=== PATIENT | male | born 1945 | race Caucasian/White ===

== ENCOUNTER → 2019-08-24 10:28 | Outpatient (BNVA) | payer OTHER, SELFPAY | PROVIDERS: Family Provider Internal Medicine; PCP Internal Medicine; Visit Provider Urology | DX: R97.20 Elevated prostate specific antigen [PSA] (principal); C61 Malignant neoplasm of prostate | CPT/HCPCS: 81001; 84153 ==

== ENCOUNTER → 2019-11-24 07:52 | Outpatient (BNVA) | payer OTHER, SELFPAY | PROVIDERS: Family Provider Internal Medicine; PCP Internal Medicine; Visit Provider Urology | DX: R97.20 Elevated prostate specific antigen [PSA] (principal) | CPT/HCPCS: 81001; 84153 ==

== ENCOUNTER → 2020-05-24 08:14 | Outpatient (BNVA) | payer OTHER, SELFPAY | PROVIDERS: Family Provider Internal Medicine; PCP Family Medicine; Visit Provider Urology | DX: C61 Malignant neoplasm of prostate (principal); R97.20 Elevated prostate specific antigen [PSA] | CPT/HCPCS: 81003; 84153 ==

== ENCOUNTER → 2020-11-28 08:21 | Outpatient (BNVA) | payer OTHER, SELFPAY | PROVIDERS: Family Provider Internal Medicine; PCP Emergency Medicine Emergency Medical Services; Visit Provider Urology | DX: C61 Malignant neoplasm of prostate (principal); R97.20 Elevated prostate specific antigen [PSA] | CPT/HCPCS: 81003; 84153 ==

== ENCOUNTER 2021-03-02 12:42 | Outpatient (CLI) | payer OTHER, SELFPAY ==
[2021-03-02 13:00] VITALS: BP 122/64; PULSE 56; RESP 18; TEMP 36.8; O2SAT 97
[2021-03-02 13:10] VITALS: BMI 24.3
[2021-03-02 14:05] VITALS: BP 118/64; PULSE 53; RESP 16; TEMP 36.6; O2SAT 94
[2021-03-02 15:05] VITALS: BP 124/67; PULSE 54; RESP 16; TEMP 36.9; O2SAT 92
== END 2021-03-02 12:43 | disposition home or self-care (01) ==
LOC: OPS 12:45
PROVIDERS: PCP Emergency Medicine Emergency Medical Services; Visit Provider Nurse Practitioner
DX: U07.1 COVID-19 (principal)
CPT/HCPCS: 96365

== ENCOUNTER → 2021-05-29 08:26 | Outpatient (BNVA) | payer MEDICARE, OTHER, SELFPAY | PROVIDERS: PCP Emergency Medicine Emergency Medical Services; Visit Provider Urology | DX: C61 Malignant neoplasm of prostate (principal) | CPT/HCPCS: 81003; 84153 ==

== ENCOUNTER 2021-11-29 09:13 | Outpatient (CLI) | payer MEDICARE, OTHER, SELFPAY | END 2021-11-29 09:14 | disposition home or self-care (01) | PROVIDERS: PCP Family Medicine; Visit Provider Urology | DX: R97.20 Elevated prostate specific antigen [PSA] (principal) | CPT/HCPCS: 36415; 84153 ==

== ENCOUNTER → 2021-12-04 08:03 | Outpatient (BNVA) | payer MEDICARE, OTHER, SELFPAY | PROVIDERS: PCP Family Medicine; Visit Provider Urology | DX: C61 Malignant neoplasm of prostate (principal) | CPT/HCPCS: 99213 ==

== ENCOUNTER → 2021-12-12 14:43 | Outpatient (BNVA) | payer MEDICARE, OTHER, SELFPAY | PROVIDERS: PCP Family Medicine; Visit Provider Otolaryngology | DX: R22.1 Localized swelling, mass and lump, neck (principal); K11.8 Other diseases of salivary glands; F17.200 Nicotine dependence, unspecified, uncomplicated | CPT/HCPCS: 99203; 99204 ==

== ENCOUNTER → 2021-12-17 10:35 | Outpatient (BNVA) | payer MEDICARE, OTHER, SELFPAY | PROVIDERS: PCP Family Medicine; Visit Provider Urology | DX: C61 Malignant neoplasm of prostate (principal) | CPT/HCPCS: 81003 ==

== ENCOUNTER 2021-12-19 15:41 | Outpatient (CLI) | payer MEDICARE, OTHER, SELFPAY ==
--- NOTE | 2021-12-19 16:00 | CT_ITS ---
WS: [id number] CT NECK WITH CONTRAST HISTORY: Parotid gland mass, RIGHT, 2-3 months. TECHNIQUE: Contiguous 5 mm axial images are performed through the neck with intravenous contrast. Sag ittal and coronal reformats are also submitted. All CT scans at [facility] use at least one o f these dose optimization techniques: automated exposure control; mA and/or kV adjustment per patient size (includes targeted exams where dose is matched to clinical indication); or iterative reconstruc tion. CONTRAST: CONTRAST: Omnipaque 350; 95 mL IV. DLP: 225.84 mGy.cm COMPARISON: None available. Minimally enhancing mass is noted in the superficial tail of the RIGHT parotid gland. Mass measures 1 .6 x 1.7 cm and extends over length of 2.1 cm. Margins are very slightly nodular. No cystic component . This is an additional more superficial nodule measuring 0.6 cm which may be a benign lymph node. LE FT parotid gland is negative. RIGHT cervical chain lymphadenopathy. Level IIa round lymph node maximum transverse diameter 1.7 cm. Level IIb lymph node on the RIGHT measures 1.3 cm. Several round enlarged lymph nodes at level IIb. E nlarged Vb lymph node measures 1.5 cm. No significantly enlarged LEFT cervical chain lymph nodes. No soft tissue extension into the parapharyngeal fat. Nasopharynx and oropharynx and larynx are negative. No tumors or abnormal enhancement at the tongue b ase or through the larynx. Negative thyroid gland. Normal submandibular glands. Visualized portions of the skull base demonstrate no abnormalities. Orbits and globes are within norm al limits. No soft tissue masses. Visualized paranasal sinuses and mastoid air cells are normal. Lung apices are clear. Moderate cervical spondylitic changes. CT/CT neck w con* [id number] IMPRESSION: 1. Solid mildly enhancing mass superficial tail RIGHT parotid gland measures 1 .6 x 1.7 x 2.1 cm. There is an additional smaller more superficial enhancing no dule measuring 0.6 cm. This could be a small lymph node. The largest solid enha ncing mass suspicious for neoplasm as there is adjacent cervical lymphadenopath y. Biopsy and surgical removal recommended RIGHT parotid lesions. 2. RIGHT cervical lymphadenopathy. Abnormal lymph nodes at level IIa, IIb and Vb. 3. No additional areas of abnormal enhancement throughout the neck.
[2021-12-19 16:26] LABS: Blood Urea Nitrogen 16 mg/dL (8-23)
[2021-12-19] MEDS: iohexol 350 mg/mL 100 mL Btl IV (16:37)
== END 2021-12-19 15:42 | disposition home or self-care (01) ==
PROVIDERS: PCP Family Medicine; Visit Provider Otolaryngology
DX: R22.1 Localized swelling, mass and lump, neck (principal)
CPT/HCPCS: 70491; 82565; 84520

== ENCOUNTER → 2021-12-26 10:27 | Outpatient (BNVA) | payer MEDICARE, OTHER, SELFPAY | PROVIDERS: PCP Family Medicine; Visit Provider Otolaryngology | DX: K11.8 Other diseases of salivary glands (principal); R59.0 Localized enlarged lymph nodes; F17.200 Nicotine dependence, unspecified, uncomplicated | CPT/HCPCS: 99213 ==

== ENCOUNTER 2022-01-02 11:50 | Outpatient (CLI) | payer MEDICARE, OTHER, SELFPAY ==
--- NOTE | 2022-01-02 | US_ITS ---
WS: [id number] ULTRASOUND-GUIDED FNA. INDICATION: RIGHT parotid lesions TECHNIQUE: The procedure, including risks benefits, and complications were discussed with the patient who agreed to proceed. Timeout was performed. After 1% lidocaine, using ultrasound guidance, the RIG HT parotid mass in the tail of the parotid was sampled with 25-gauge needles with active aspiration. Pathology was present for slide preparation. 4 passes performed. Next, the superficial nodule or lymph node seen on the prior CT was also sampled using FNA with ultra sound guidance. 4 passes performed. Patient remained in the ultrasound Suite 15 minutes postprocedure . No immediate complications.. Cytology is pending. US/US guide FNA 2nd lesion [id number] IMPRESSION: Uncomplicated ultrasound-guided FNA of the 2 parotid lesions.
--- NOTE | 2022-01-02 | US_ITS ---
WS: [facility] ULTRASOUND-GUIDED FNA. INDICATION: RIGHT parotid lesions TECHNIQUE: The procedure, including risks benefits, and complications were discussed with the patient who agreed to proceed. Timeout was performed. After 1% lidocaine, using ultrasound guidance, the RIG HT parotid mass in the tail of the parotid was sampled with 25-gauge needles with active aspiration. Pathology was present for slide preparation. 4 passes performed. Next, the superficial nodule or lymph node seen on the prior CT was also sampled using FNA with ultra sound guidance. 4 passes performed. Patient remained in the ultrasound Suite 15 minutes postprocedure . No immediate complications.. Cytology is pending. US/US guide FNA [id number] IMPRESSION: Uncomplicated ultrasound-guided FNA of the 2 parotid lesions.
== END 2022-01-02 11:51 | disposition home or self-care (01) ==
LOC: RAD 11:51
PROVIDERS: PCP Family Medicine; Visit Provider Otolaryngology
DX: K11.8 Other diseases of salivary glands (principal)
CPT/HCPCS: 10005; 10006; 88108

== ENCOUNTER → 2022-01-09 08:15 | Outpatient (BNVA) | payer MEDICARE, OTHER, SELFPAY | PROVIDERS: PCP Family Medicine; Visit Provider Otolaryngology | DX: C07 Malignant neoplasm of parotid gland (principal); R59.0 Localized enlarged lymph nodes; F17.200 Nicotine dependence, unspecified, uncomplicated | CPT/HCPCS: 99213 ==

== ENCOUNTER → 2022-01-16 09:26 | Outpatient (BNVA) | payer MEDICARE, OTHER, SELFPAY | PROVIDERS: PCP Family Medicine; Visit Provider Otolaryngology | DX: C07 Malignant neoplasm of parotid gland (principal); R59.0 Localized enlarged lymph nodes; F17.200 Nicotine dependence, unspecified, uncomplicated | CPT/HCPCS: 99204 ==

== ENCOUNTER → 2022-02-27 08:30 | Outpatient (BNVA) | payer MEDICARE, OTHER, SELFPAY | PROVIDERS: PCP Family Medicine; Visit Provider Otolaryngology | DX: C07 Malignant neoplasm of parotid gland (principal); R59.0 Localized enlarged lymph nodes | CPT/HCPCS: 99213 ==

== ENCOUNTER → 2022-03-06 12:01 | Outpatient (BNVA) | payer MEDICARE, OTHER, SELFPAY | PROVIDERS: PCP Family Medicine; Visit Provider Otolaryngology | DX: C07 Malignant neoplasm of parotid gland (principal); R59.0 Localized enlarged lymph nodes | CPT/HCPCS: 99213 ==

== ENCOUNTER 2022-03-20 13:37 | Oncology outpatient (recurring) (ONCR) | payer MEDICARE, OTHER, SELFPAY ==
--- NOTE | 2022-03-20 16:05 | N.ONRAD NP_ITS ---
Radiation Oncology New Patient Visit Patient: Alfred Flores MR#: [id number] : 1945> Age: 76> Sex: Male> Dictated by: Dr. Matthew Ledbetter Date of Service: 03/20/2022 Referring Physician(s) : Dr. Jayjay Santos Diagnosis: Skin, unknown site, squamous cell carcinoma, stage [id number] Radiotherapy to date: Summary > No prior radiation therapy. Chief Complaint / History of Present Illness: Mr. Flores is a 76-year-old gentleman with a history of multiple skin cancers on both sides of his face. He was recently seen for removal of a cancer involving the lower left lateral eyelid. At that time he was noted to have a mass in the tail of the right parotid. He was referred to Dr. Lucero and a CT scan of the neck was performed which showed a mass in the superficial tail of the right parotid gland measuring 1.6 x 1.7 x 2.1 cm. Another nodule was noted measuring 6 mm. Within the right cervical chain multiple lymph nodes were noted varying in size from 1.3 to 1.7 cm. No other abnormality was noted in the head neck area, including the left neck. A fine-needle aspiration confirmed carcinoma in the parotid tail mass. A PET scan was performed which showed activity consistent with malignancy in multiple nodes of the right neck and in the right parotid. No contralateral lymphadenopathy, areas suggestive of malignancy in the head neck or distant metastatic disease found. Mr. Flores saw Dr. Santos at [facility] head neck oncology and underwent a right parotidectomy and neck dissection 02/21/2022. He tolerated surgery well though he does have some 7th nerve weakness which is making it difficult for him to completely close his right eye and to smile normally. 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 Largest metastasis was 2.7 cm and carcinoma was present at the specimen tissue edge. Extensive lymphovascular invasion was identified. In the right neck level 3 he had metastatic squamous cell carcinoma in 4 of 16 lymph nodes with the largest metastasis measuring 2.9 cm and extranodal extension identified. In the right neck level 2 he had 8 of 14 lymph nodes involved with extranodal extension and lymphovascular invasion identified. In the right neck level 4 he had metastatic squamous cell carcinoma in 2 of 14 lymph nodes with extranodal extension identified. In the right neck level 5 he had metastatic squamous cell carcinoma in 1 of 5 lymph nodes and no extranodal extension was identified. A note accompanied the path report which stated that the cancer was a poorly differentiated carcinoma that did not have definite squamous differentiation. Immunohistochemistry was performed and supported the diagnosis of squamous cell carcinoma. Chromogranin was positive and synaptophysin had weak focal staining indicating neuroendocrine differentiation. It was thought that the cancer was consistent with metastatic disease from a skin primary. Mr. Flores has been referred for evaluation for postoperative radiation. He is edentulous. Dr. Rowland has also recommended that show be evaluated by Dr. Calderon. Current Medications: Aspirin 325 mg, captopril, folic acid, lovastatin, metoprolol. Allergies: No Known Allergies Medical History: No history of collagen vascular disease. No previous radiation therapy. Low-grade prostate cancer being followed with active surveillance. History of hyperlipidemia. Surgical History: Lumbar spine surgery. Intravascular stent. Family History: Social History: Non-smoker smoker. Never used alcoholic beverages. . Retired. Current Complaints / Review of Systems: Negative except for facial nerve weakness and difficulty closing the right eye. Vital Signs: Performed on 03/20/2022 1:52 PM BMI - 24.237 kg/m2 (high), Height - 68 in, Weight - 159.4 lbs, Temperature - 96.8 f, Pulse - 63 /min, Respiration - 18 /min, O2 Sat - 98 %, Pain - 0, Fatigue - 0 and BP - 151/ 75 mm(hg)(high/). Physical Exam: Alert, oriented, no acute distress. He appears well-nourished. He has had excellent healing of the postoperative changes in the right neck. The incision is intact and there is no drainage or fluctuance associated with it. There is no evidence of local recurrence in the right parotid area. There is no tenderness of the TMJ. The skin of the head neck area was closely examined. The right ear and right ear canal were examined and no lesions seen. The left lower eyelid where a cancer was removed recently is well-healed. No active lesions seen. On the crown of his head on the right there is a small area of very superficial crusting. This does not appear to be a skin cancer, but I brought it to the patient's attention so he can monitor it. The oral cavity examination reveals him to be edentulous. No lesions seen of the oral cavity or visible oropharynx. The neck and supraclavicular areas are free of lymphadenopathy. Lungs clear to percussion. On auscultation no rales rhonchi or wheezes. Heart rhythm regular. No murmur or gallop. Abdomen no distention. No organomegaly or mass or tenderness. Musculoskeletal exam reveals no bone tenderness. The patient is ambulatory without assistance. Neurologic exam reveals no deficits other than the right 7th nerve weakness. Mr. Flores cannot quite completely close his right eye. He has some conjunctival irritation involving the lower lid. No lesions seen. Performance Status: ECOG 0 Pathology: See HPI Lab: Imaging: See HPI Impression: It appears that Mr. Flores has metastatic skin cancer involving the right parotid nodes and the right cervical lymph node chain. A specific primary site is not known. The cancer appears aggressive with multiple lymph nodes being involved, extranodal extension present in multiple nodes, and extensive lymphovascular invasion at multiple sites. NCCN guidelines were reviewed. For high risk regional disease that has been resected, radiation +/- chemotherapy is recommended. I discussed postoperative radiation. I discussed side effects including mucositis, xerostomia, altered taste, skin reaction, TMJ syndrome, and middle ear effusion requiring drainage. I discussed that he is scheduled to see Dr. Calderon March 26 and we will need his input with regard to systemic therapy. According to NCCN, if chemotherapy is utilized, a cisplatin regimen or carboplatin and Taxol regimen is recommended. Plan: Postoperative radiation. Concomitant chemotherapy may be delivered. Signed by: 03/20/2022 4:04:37 PM <<Signature on File>> Time spent with patient: CPT Code: CPT Code:
== END 2022-03-23 23:59 | disposition home or self-care (01) ==
LOC: ONCMED 13:39
PROVIDERS: PCP Family Medicine; Visit Provider Radiology Radiation Oncology
DX: C77.8 Secondary and unspecified malignant neoplasm of lymph nodes of multiple regions (principal); C80.1 Malignant (primary) neoplasm, unspecified
CPT/HCPCS: 99204

== ENCOUNTER → 2022-03-26 07:49 | Outpatient (BNVA) | payer MEDICARE, SELFPAY ==
--- NOTE | 2022-04-15 08:30 | ONCRAD TMN_ITS ---
Radiation Oncology Treatment Management Note Patient Name: Alfred Flores Date of : 1945 Date of Service: 04/15/2022 Attending Physician: Chato Rowland M.D. 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 He was initially identified during a dermatological appointment to have a palpable posterior cervical lymph node that measured 2 cm x 2 cm. A trial of cephalexin was unsuccessful and he was referred to [facility]'s Ear Nose and Throat Department. A neck CT ordered by Amado Hubbard M.D. on December 19, 2021 described an enhancing mass in the superficial tail of the right parotid gland that measured 1.6 cm x 1.7 cm x 2.1 cm. Right cervical lymphadenopathy within lymph node stations IIa, IIb, and Vb was also reported. An ultrasound-guided fine-needle aspiration completed on January 02, 2022 was suspicious for large cell malignancy. A PET scan obtained on January 12, 2022 confirmed hypermetabolic activity in the right parotid gland (SUV 10.4), and multiple right-sided lymph nodes that were FDG positive in cervical levels IIa, IIb, and III. A right total parotidectomy and right neck dissection was performed by Jayjay Santos M.D. at [facility] in [place], [place] on February 21, 2022. 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 The largest lymph node measured 2.7 cm with extensive lymphovascular invasion noted. Malignancy was present at the tissue edge. The right lymph node cervical dissection contained 8 out of 14 lymph nodes harboring squamous cell carcinoma with extranodal extension present within the right level II lymph node station, right level III region encompassed 4 out of 16 lymph nodes positive for squamous cell carcinoma (largest metastasis 2.9 cm with extranodal extension present), 2 out of 14 lymph nodes contained squamous cell carcinoma with extranodal extension in the right level IV dissection, and 1 out of 5 lymph nodes included metastatic carcinoma amongst the level V specimen (no extranodal extension present). The patient has received 22 Gy of a prescribed 66 Baumann with an intensity modulated radiotherapy plan utilizing a step and shoot treatment technique. Upon review of systems, he described mild xerostomia. On physical examination, the patient weighed 159 lbs. His temperature was 98.7 ???F and the blood pressure was 141/62 mmHg. His pulse was 44 bpm and the respiratory rate was here was no skin changes within the treatment peña. Continue post-operative head and neck radiotherapy as prescribed. Signed by: Dr. Chato Rowland 04/15/2022 8:28:57 AM
== END ==
PROVIDERS: PCP Family Medicine; Visit Provider Internal Medicine Hematology & Oncology
DX: C79.89 Secondary malignant neoplasm of other specified sites (principal); C80.1 Malignant (primary) neoplasm, unspecified
CPT/HCPCS: 77014; 77386; 99204

== ENCOUNTER 2022-03-27 13:58 | Outpatient (CLI) | payer MEDICARE, SELFPAY ==
[2022-03-27 14:54] LABS: Basophils % 0.2 %; Eosinophils # 0.1 10^3/uL (0.0-0.8); Eosinophils % 2.3 %; Hematocrit 46.2 % (42.0-52.0); Lymphocytes # 1.1 10^3/uL (0.8-4.8); Lymphocytes % 21.2 %; Mean Corpuscular HGB Conc 32.5 g/dL (30.0-36.0); Mean Corpuscular Hemoglobin 30.7 pg (28.0-34.0); Mean Corpuscular Volume 94.5 fl (80-94); Mean Platelet Volume 9.6 fL (7.4-10.4); Monocytes # 0.4 10^3/uL (0.2-0.9); Monocytes % 7.1 %; Neutrophils # 3.61 10^3/uL (1.8-7.7); Neutrophils % 68.8 %; Nucleated Red Blood Cells % 0 %; Platelet Count 162 10^3/cmm (130-400); Red Blood Count 4.89 10^6/uL (4.1-5.3); Red Cell Distribution Width 13.2 % (12.1-15.1); White Blood Count 5.2 10^3/uL (4.0-10.0)
[2022-03-27 15:23] LABS: Alanine Aminotransferase 15 U/L (0-41); Albumin Level 3.8 g/dL (3.5-5.2); Alkaline Phosphatase 84 U/L (40-130); Aspartate Amino Transferase 16 U/L (0-40); Blood Urea Nitrogen 16 mg/dL (8-23); Calcium 9.4 mg/dL (8.5-10.5); Carbon Dioxide 28 mmol/L (22-29); Chloride 102 mmol/L (98-107); Globulin 2.4 g/dL (1.3-4.6); Glucose 112 mg/dL (65-115); Osmolality Calculated 288 mOsm/kg (285-295); Sodium 138 mmol/L (136-145); Total Bilirubin 0.4 mg/dL (0.15-1.2); Total Protein 6.2 g/dL (6.6-8.7)
[2022-03-27 15:26] LABS: Anion Gap 12.1 (5-19)
[2022-03-27 15:27] LABS: Potassium 4.1 mmol/L (3.5-5.1)
== END 2022-03-27 13:59 | disposition home or self-care (01) ==
LOC: LAB 14:01
PROVIDERS: PCP Family Medicine; Visit Provider Radiology Radiation Oncology
DX: C07 Malignant neoplasm of parotid gland (principal)
CPT/HCPCS: 36415; 80053; 85025

== ENCOUNTER 2022-04-22 08:13 | Oncology outpatient (recurring) (ONCR) | payer MEDICARE, OTHER, SELFPAY ==
--- NOTE | 2022-03-28 | CT_ITS ---
Radiation Therapy Planning CT images; total exam DLP: 829.72 mGy-cm MTDD
[2022-03-28] MEDS: iohexol 350 mg/mL 100 mL Btl IV (08:13)
--- NOTE | 2022-04-01 10:21 | ONCRAD TMN_ITS ---
Radiation Oncology Treatment Management Note Patient Name: Alfred Flores Date of : 1945 Date of Service: 04/01/2022 Attending Physician: Chato Rowland M.D. 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 He was initially identified during a dermatological appointment to have a palpable posterior cervical lymph node that measured 2 cm x 2 cm. A trial of cephalexin was unsuccessful and he was referred to [facility] Ear Nose and Throat Department. A neck CT ordered by Amado Hubbard M.D. on December 19, 2021 described an enhancing mass in the superficial tail of the right parotid gland that measured 1.6 cm x 1.7 cm x 2.1 cm. Right cervical lymphadenopathy within lymph node stations IIa, IIb, and Vb was also reported. An ultrasound-guided fine-needle aspiration completed on January 02, 2022 was suspicious for large cell malignancy. A PET scan obtained on January 12, 2022 confirmed hypermetabolic activity in the right parotid gland (SUV 10.4), and multiple right-sided lymph nodes that were FDG positive in cervical levels IIa, IIb, and III. A right total parotidectomy and right neck dissection was performed by Jayjay Santos M.D. at [facility] in [place], [place] on February 21, 2022. 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 The largest lymph node measured 2.7 cm with extensive lymphovascular invasion noted. Malignancy was present at the tissue edge. The right lymph node cervical dissection contained 8 out of 14 lymph nodes harboring squamous cell carcinoma with extranodal extension present within the right level II lymph node station, right level III region encompassed 4 out of 16 lymph nodes positive for squamous cell carcinoma (largest metastasis 2.9 cm with extranodal extension present), 2 out of 14 lymph nodes contained squamous cell carcinoma with extranodal extension in the right level IV dissection, and 1 out of 5 lymph nodes included metastatic carcinoma amongst the level V specimen (no extranodal extension present). The patient has received 2 Gy of a prescribed 66 Baumann with an intensity modulated radiotherapy plan utilizing a step and shoot treatment technique. Upon review of systems, he denied any complaints related to radiotherapy. On physical examination, the patient weighed 159 lbs. His temperature was 98.8 ???F and the blood pressure was 156/85 mmHg. His pulse was 43 bpm and the respiratory rate was 16. There was no erythema within the treatment peña. Continue post-operative head and neck radiotherapy as prescribed. Signed by: Dr. Chato Rowland 04/01/2022 10:20:28 AM
--- NOTE | 2022-04-08 08:56 | ONCRAD TMN_ITS ---
Radiation Oncology Treatment Management Note Patient Name: Alfred Flores Date of : 1945 Date of Service: 04/08/2022 Attending Physician: Chato Rowland M.D. 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 He was initially identified during a dermatological appointment to have a palpable posterior cervical lymph node that measured 2 cm x 2 cm. A trial of cephalexin was unsuccessful and he was referred to [facility]'s Ear Nose and Throat Department. A neck CT ordered by Amado Hubbard M.D. on December 19, 2021 described an enhancing mass in the superficial tail of the right parotid gland that measured 1.6 cm x 1.7 cm x 2.1 cm. Right cervical lymphadenopathy within lymph node stations IIa, IIb, and Vb was also reported. An ultrasound-guided fine-needle aspiration completed on January 02, 2022 was suspicious for large cell malignancy. A PET scan obtained on January 12, 2022 confirmed hypermetabolic activity in the right parotid gland (SUV 10.4), and multiple right-sided lymph nodes that were FDG positive in cervical levels IIa, IIb, and III. A right total parotidectomy and right neck dissection was performed by Jayjay Santos M.D. at [facility] in [place], [place] on February 21, 2022. 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 The largest lymph node measured 2.7 cm with extensive lymphovascular invasion noted. Malignancy was present at the tissue edge. The right lymph node cervical dissection contained 8 out of 14 lymph nodes harboring squamous cell carcinoma with extranodal extension present within the right level II lymph node station, right level III region encompassed 4 out of 16 lymph nodes positive for squamous cell carcinoma (largest metastasis 2.9 cm with extranodal extension present), 2 out of 14 lymph nodes contained squamous cell carcinoma with extranodal extension in the right level IV dissection, and 1 out of 5 lymph nodes included metastatic carcinoma amongst the level V specimen (no extranodal extension present). The patient has received 12 Gy of a prescribed 66 Baumann with an intensity modulated radiotherapy plan utilizing a step and shoot treatment technique. Upon review of systems, he denied any complaints related to radiotherapy. On physical examination, the patient weighed 160 lbs. His temperature was 98 ???F and the blood pressure was 142/70 mmHg. His pulse was 45 bpm and the respiratory rate was 16. There was no skin changes within the treatment peña. Continue post-operative head and neck radiotherapy as planned. Signed by: Dr. Chato Rowland 04/08/2022 8:55:30 AM
--- NOTE | 2022-04-22 08:55 | ONCRAD TMN_ITS ---
Radiation Oncology Treatment Management Note Patient Name: Alfred Flores Date of : 1945 Date of Service: 04/22/2022 Attending Physician: Chato Rowland M.D. 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 He was initially identified during a dermatological appointment to have a palpable posterior cervical lymph node that measured 2 cm x 2 cm. A trial of cephalexin was unsuccessful and he was referred to [facility]'s Ear Nose and Throat Department. A neck CT ordered by Amado Hubbard M.D. on December 19, 2021 described an enhancing mass in the superficial tail of the right parotid gland that measured 1.6 cm x 1.7 cm x 2.1 cm. Right cervical lymphadenopathy within lymph node stations IIa, IIb, and Vb was also reported. An ultrasound-guided fine-needle aspiration completed on January 02, 2022 was suspicious for large cell malignancy. A PET scan obtained on January 12, 2022 confirmed hypermetabolic activity in the right parotid gland (SUV 10.4), and multiple right-sided lymph nodes that were FDG positive in cervical levels IIa, IIb, and III. A right total parotidectomy and right neck dissection was performed by Jayjay Santos M.D. at [facility] in [place], [place] on February 21, 2022. 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 The largest lymph node measured 2.7 cm with extensive lymphovascular invasion noted. Malignancy was present at the tissue edge. The right lymph node cervical dissection contained 8 out of 14 lymph nodes harboring squamous cell carcinoma with extranodal extension present within the right level II lymph node station, right level III region encompassed 4 out of 16 lymph nodes positive for squamous cell carcinoma (largest metastasis 2.9 cm with extranodal extension present), 2 out of 14 lymph nodes contained squamous cell carcinoma with extranodal extension in the right level IV dissection, and 1 out of 5 lymph nodes included metastatic carcinoma amongst the level V specimen (no extranodal extension present). The patient has received 30 Gy of a prescribed 66 Baumann with an intensity modulated radiotherapy plan utilizing a step and shoot treatment technique. Upon review of systems, he did not report any new symptoms. On physical examination, the patient weighed 159 lbs. His temperature was 97.7 ???F and the blood pressure was 129/64 mmHg. His pulse was 49 bpm and the respiratory rate was 17. There was skin dryness within the treatment peña. Continue post-operative head and neck radiotherapy as planned. Signed by: Dr. Chato Rowland 04/22/2022 8:53:50 AM
== END 2022-04-23 23:59 | disposition home or self-care (01) ==
PROVIDERS: PCP Family Medicine; Visit Provider Radiology Radiation Oncology
DX: Z51.0 Encounter for antineoplastic radiation therapy (principal); C80.1 Malignant (primary) neoplasm, unspecified; C77.8 Secondary and unspecified malignant neoplasm of lymph nodes of multiple regions; C79.89 Secondary malignant neoplasm of other specified sites; Z79.899 Other long term (current) drug therapy
CPT/HCPCS: 77300; 77301; 77334; 77336; 77338; 77386; 99024; 99204; 99213; Q9967

== ENCOUNTER → 2022-05-07 09:13 | Outpatient (BNVA) | payer MEDICARE, OTHER, SELFPAY | PROVIDERS: PCP Family Medicine; Visit Provider Otolaryngology | DX: C07 Malignant neoplasm of parotid gland (principal); R59.0 Localized enlarged lymph nodes | CPT/HCPCS: 99212; 99213 ==

== ENCOUNTER 2022-05-21 08:12 | Oncology outpatient (recurring) (ONCR) | payer MEDICARE, OTHER, SELFPAY ==
--- NOTE | 2022-04-29 08:51 | ONCRAD TMN_ITS ---
Radiation Oncology Treatment Management Note Patient Name: Alfred Flores Date of : 1945 Date of Service: 04/29/2022 Attending Physician: Chato Rowland M.D. 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 He was initially identified during a dermatological appointment to have a palpable posterior cervical lymph node that measured 2 cm x 2 cm. A trial of cephalexin was unsuccessful and he was referred to [facility] Ear N[facility] Thro[facility] Department. A neck CT ordered by Amado Hubbard M.D. on December 19, 2021 described an enhancing mass in the superficial tail of the right parotid gland that measured 1.6 cm x 1.7 cm x 2.1 cm. Right cervical lymphadenopathy within lymph node stations IIa, IIb, and Vb was also reported. An ultrasound-guided fine-needle aspiration completed on January 02, 2022 was suspicious for large cell malignancy. A PET scan obtained on January 12, 2022 confirmed hypermetabolic activity in the right parotid gland (SUV 10.4), and multiple right-sided lymph nodes that were FDG positive in cervical levels IIa, IIb, and III. A right total parotidectomy and right neck dissection was performed by Jayjay Santos M.D. at [facility] in [place], [place] on February 21, 2022. 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 The largest lymph node measured 2.7 cm with extensive lymphovascular invasion noted. Malignancy was present at the tissue edge. The right lymph node cervical dissection contained 8 out of 14 lymph nodes harboring squamous cell carcinoma with extranodal extension present within the right level II lymph node station, right level III region encompassed 4 out of 16 lymph nodes positive for squamous cell carcinoma (largest metastasis 2.9 cm with extranodal extension present), 2 out of 14 lymph nodes contained squamous cell carcinoma with extranodal extension in the right level IV dissection, and 1 out of 5 lymph nodes included metastatic carcinoma amongst the level V specimen (no extranodal extension present). The patient has received 38 Gy of a prescribed 66 Baumann with an intensity modulated radiotherapy plan utilizing a step and shoot treatment technique. Upon review of systems, he did not report any complaints. On physical examination, the patient weighed 157 lbs. His temperature was 96.7 ???F and the blood pressure was 143/69 mmHg. His pulse was 47 bpm and the respiratory rate was 17. There was dry desquamation within the treatment peña. Continue post-operative head and neck radiotherapy as prescribed. Signed by: Dr. Chato Rowland 04/29/2022 8:50:17 AM
--- NOTE | 2022-05-06 08:59 | ONCRAD TMN_ITS ---
Radiation Oncology Treatment Management Note Patient Name: Alfred Flores Date of : 1945 Date of Service: 05/06/2022 Attending Physician: Chato Rowland M.D. 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 He was initially identified during a dermatological appointment to have a palpable posterior cervical lymph node that measured 2 cm x 2 cm. A trial of cephalexin was unsuccessful and he was referred to [facility] Ear N[facility] Throat Department. A neck CT ordered by Amado Hubbard M.D. on December 19, 2021 described an enhancing mass in the superficial tail of the right parotid gland that measured 1.6 cm x 1.7 cm x 2.1 cm. Right cervical lymphadenopathy within lymph node stations IIa, IIb, and Vb was also reported. An ultrasound-guided fine-needle aspiration completed on January 02, 2022 was suspicious for large cell malignancy. A PET scan obtained on January 12, 2022 confirmed hypermetabolic activity in the right parotid gland (SUV 10.4), and multiple right-sided lymph nodes that were FDG positive in cervical levels IIa, IIb, and III. A right total parotidectomy and right neck dissection was performed by Jayjay Santos M.D. at [facility] [place] [facility] in [place], [place] on February 21, 2022. 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 The largest lymph node measured 2.7 cm with extensive lymphovascular invasion noted. Malignancy was present at the tissue edge. The right lymph node cervical dissection contained 8 out of 14 lymph nodes harboring squamous cell carcinoma with extranodal extension present within the right level II lymph node station, right level III region encompassed 4 out of 16 lymph nodes positive for squamous cell carcinoma (largest metastasis 2.9 cm with extranodal extension present), 2 out of 14 lymph nodes contained squamous cell carcinoma with extranodal extension in the right level IV dissection, and 1 out of 5 lymph nodes included metastatic carcinoma amongst the level V specimen (no extranodal extension present). The patient has received 46 Gy of a prescribed 66 Baumann with an intensity modulated radiotherapy plan utilizing a step and shoot treatment technique. Upon review of systems, he described a skin rash in his right lower neck. On physical examination, he weighed 152 lbs. His blood pressure was 164/73 mmHg. His pulse was 44 bpm and the respiratory rate was 17. There was moist desquamation within the right lower neck. Post-pone radiation treatment for one week. Signed by: Dr. Chato Rowland 05/06/2022 8:58:58 AM
--- NOTE | 2022-05-13 08:39 | ONCRAD TMN_ITS ---
Radiation Oncology Treatment Management Note Patient Name: Alfred Flores Date of : 1945 Date of Service: 05/13/2022 Attending Physician: Chato Rowland M.D. 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 He was initially identified during a dermatological appointment to have a palpable posterior cervical lymph node that measured 2 cm x 2 cm. A trial of cephalexin was unsuccessful and he was referred to [facility]'s Ear Nose and Throat Department. A neck CT ordered by Amado Hubbard M.D. on December 19, 2021 described an enhancing mass in the superficial tail of the right parotid gland that measured 1.6 cm x 1.7 cm x 2.1 cm. Right cervical lymphadenopathy within lymph node stations IIa, IIb, and Vb was also reported. An ultrasound-guided fine-needle aspiration completed on January 02, 2022 was suspicious for large cell malignancy. A PET scan obtained on January 12, 2022 confirmed hypermetabolic activity in the right parotid gland (SUV 10.4), and multiple right-sided lymph nodes that were FDG positive in cervical levels IIa, IIb, and III. A right total parotidectomy and right neck dissection was performed by Jayjay Santos M.D. at [facility] in [place], [place] on February 21, 2022. 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 The largest lymph node measured 2.7 cm with extensive lymphovascular invasion noted. Malignancy was present at the tissue edge. The right lymph node cervical dissection contained 8 out of 14 lymph nodes harboring squamous cell carcinoma with extranodal extension present within the right level II lymph node station, right level III region encompassed 4 out of 16 lymph nodes positive for squamous cell carcinoma (largest metastasis 2.9 cm with extranodal extension present), 2 out of 14 lymph nodes contained squamous cell carcinoma with extranodal extension in the right level IV dissection, and 1 out of 5 lymph nodes included metastatic carcinoma amongst the level V specimen (no extranodal extension present). The patient has received 46 Gy of a prescribed 66 Baumann with an intensity modulated radiotherapy plan utilizing a step and shoot treatment technique. Upon review of systems, he reported ageusia. On physical examination, he weighed 152 lbs. His blood pressure was 157/74 mmHg. His pulse was 56 bpm and the respiratory rate was 16. There was a grade I erythema in the treatment peña. Continue post-operative head and neck radiotherapy as planned. Signed by: Chato Rowland 05/13/2022 8:39:16 AM
--- NOTE | 2022-05-20 08:55 | ONCRAD TMN_ITS ---
Radiation Oncology Treatment Management Note Patient Name: Alfred Flores Date of : 1945 Date of Service: 05/20/2022 Attending Physician: Chato Rowland M.D. 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 He was initially identified during a dermatological appointment to have a palpable posterior cervical lymph node that measured 2 cm x 2 cm. A trial of cephalexin was unsuccessful and he was referred to [facility]'s Ear Nose and Throat Department. A neck CT ordered by Amado Hubbard M.D. on December 19, 2021 described an enhancing mass in the superficial tail of the right parotid gland that measured 1.6 cm x 1.7 cm x 2.1 cm. Right cervical lymphadenopathy within lymph node stations IIa, IIb, and Vb was also reported. An ultrasound-guided fine-needle aspiration completed on January 02, 2022 was suspicious for large cell malignancy. A PET scan obtained on January 12, 2022 confirmed hypermetabolic activity in the right parotid gland (SUV 10.4), and multiple right-sided lymph nodes that were FDG positive in cervical levels IIa, IIb, and III. A right total parotidectomy and right neck dissection was performed by Jayjay Santos M.D. at [facility] in [place], [place] on February 21, 2022. 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 The largest lymph node measured 2.7 cm with extensive lymphovascular invasion noted. Malignancy was present at the tissue edge. The right lymph node cervical dissection contained 8 out of 14 lymph nodes harboring squamous cell carcinoma with extranodal extension present within the right level II lymph node station, right level III region encompassed 4 out of 16 lymph nodes positive for squamous cell carcinoma (largest metastasis 2.9 cm with extranodal extension present), 2 out of 14 lymph nodes contained squamous cell carcinoma with extranodal extension in the right level IV dissection, and 1 out of 5 lymph nodes included metastatic carcinoma amongst the level V specimen (no extranodal extension present). The patient has received 58 Gy of a prescribed 66 Baumann with an intensity modulated radiotherapy plan utilizing a step and shoot treatment technique. Upon review of systems, he did not have any complaints. On physical examination, he weighed 152 lbs. The temperature was 97.2 ???F and his blood pressure was 153/76 mmHg. His pulse was 44 bpm and the respiratory rate was 18. There was a grade I erythema in the treatment peña. Continue post-operative head and neck radiotherapy as prescribed. Signed by: Chato Rowland 05/20/2022 8:53:47 AM
== END 2022-05-21 23:59 | disposition home or self-care (01) ==
PROVIDERS: PCP Family Medicine; Visit Provider Radiology Radiation Oncology
DX: C44.92 Squamous cell carcinoma of skin, unspecified (principal)
CPT/HCPCS: 77014; 77336; 77386; 99024; 99212; 99214

== ENCOUNTER 2022-05-27 10:06 | Outpatient (CLI) | payer MEDICARE, OTHER, SELFPAY ==
[2022-05-27 11:05] LABS: Prostate Specific AG Urology 8.72 ng/mL (0-4)
== END 2022-05-27 10:07 | disposition home or self-care (01) ==
LOC: LAB 10:09
PROVIDERS: PCP Family Medicine; Visit Provider Urology
DX: C61 Malignant neoplasm of prostate (principal)
CPT/HCPCS: 36415; 84153

== ENCOUNTER → 2022-06-03 14:10 | Outpatient (BNVA) | payer MEDICARE, OTHER, SELFPAY | PROVIDERS: PCP Family Medicine; Visit Provider Urology | DX: C61 Malignant neoplasm of prostate (principal) | CPT/HCPCS: 81003; 99213 ==

== ENCOUNTER → 2022-06-04 09:14 | Outpatient (BNVA) | payer MEDICARE, OTHER, SELFPAY | PROVIDERS: PCP Family Medicine; Visit Provider Otolaryngology | DX: C07 Malignant neoplasm of parotid gland (principal); C80.1 Malignant (primary) neoplasm, unspecified; C79.89 Secondary malignant neoplasm of other specified sites | CPT/HCPCS: 99213 ==

== ENCOUNTER 2022-06-21 08:50 | Oncology outpatient (recurring) (ONCR) | payer MEDICARE, OTHER, SELFPAY ==
--- NOTE | 2022-05-24 08:19 | N.ONRD TS_ITS ---
Radiation OncologyTreatment Summary Patient Name: Alfred Flores Date of : 1945 Date of Service: 05/24/2022 Attending Physician: Chato Rowland M.D. 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 He was initially identified during a dermatological appointment to have a palpable posterior cervical lymph node that measured 2 cm x 2 cm. A trial of cephalexin was unsuccessful and he was referred to [facility] Ear Nose [facility] Throat Department. A neck CT ordered by Amado Hubbard M.D. on December 19, 2021 described an enhancing mass in the superficial tail of the right parotid gland that measured 1.6 cm x 1.7 cm x 2.1 cm. Right cervical lymphadenopathy within lymph node stations IIa, IIb, and Vb was also reported. An ultrasound-guided fine-needle aspiration completed on January 02, 2022 was suspicious for large cell malignancy. A PET scan obtained on January 12, 2022 confirmed hypermetabolic activity in the right parotid gland (SUV 10.4), and multiple right-sided lymph nodes that were FDG positive in cervical levels IIa, IIb, and III. A right total parotidectomy and right neck dissection was performed by Jayjay Santos M.D. at [facility] in [place], [place] on February 21, 2022. 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 The largest lymph node measured 2.7 cm with extensive lymphovascular invasion noted. Malignancy was present at the tissue edge. The right lymph node cervical dissection contained 8 out of 14 lymph nodes harboring squamous cell carcinoma with extranodal extension present within the right level II lymph node station, right level III region encompassed 4 out of 16 lymph nodes positive for squamous cell carcinoma (largest metastasis 2.9 cm with extranodal extension present), 2 out of 14 lymph nodes contained squamous cell carcinoma with extranodal extension in the right level IV dissection, and 1 out of 5 lymph nodes included metastatic carcinoma amongst the level V specimen (no extranodal extension present). Head and neck radiation therapy was delivered between the dates of April 01, 2022 through May 24, 2022. A prescribed dose of 66 Gy was delivered in 33 fractions encompassing 54 elapsed days. The postoperative bed and right cervical lymph node stations were treated utilizing an intensity modulated radiotherapy plan with a step and shoot treatment technique. The plan required six gantry angles (0???, 175???, 220???, 260???, 300???, and 340???) replicating a partial arc. The collimator angle was 0???. The field sizes spanned 10.2 cm x 16.5 cm to 13.3 cm x 16.5 cm. The SSDs measured a minimum of 93.3 cm to a maximum of 98.6 cm. The ports delivered 200 MU, 98 MU, 136 MU, 157 MU, 220 MU, and 156 MU corresponding to the gantry angles described. Low energy photons were prescribed. All treatments were performed with the AdAdapted linear accelerator and an isocentric technique. The dose was calculated by Anisotropic Analytic Algorithm with the plan normalized to deliver 100% of the prescription dose to 95% of the planning target volume. Signed by: Chato Rowland 05/24/2022 8:17:48 AM
--- NOTE | 2022-06-21 09:50 | ONCRAD EPV_ITS ---
Radiation Oncology Follow-Up Note Patient Name: Alfred Dumont Date of : 1945 Date of Service: 06/21/2022 Attending Physician: Chato Rowland M.D. Alfred Dumont returned for a routinely scheduled follow-up appointment. 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 He was initially identified during a dermatological appointment to have a palpable posterior cervical lymph node that measured 2 cm x 2 cm. A trial of cephalexin was unsuccessful and he was referred to [facility] N[facility] Thro[facility] Department. A neck CT ordered by Amado Hubbard M.D. on December 19, 2021 described an enhancing mass in the superficial tail of the right parotid gland that measured 1.6 cm x 1.7 cm x 2.1 cm. Right cervical lymphadenopathy within lymph node stations IIa, IIb, and Vb was also reported. An ultrasound-guided fine-needle aspiration completed on January 02, 2022 was suspicious for large cell malignancy. A PET scan obtained on January 12, 2022 confirmed hypermetabolic activity in the right parotid gland (SUV 10.4), and multiple right-sided lymph nodes that were FDG positive in cervical levels IIa, IIb, and III. A right total parotidectomy and right neck dissection was performed by Jayjay Santos M.D. at [facility] in [place], [place] on February 21, 2022. 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 The largest lymph node measured 2.7 cm with extensive lymphovascular invasion noted. Malignancy was present at the tissue edge. The right lymph node cervical dissection contained 8 out of 14 lymph nodes harboring squamous cell carcinoma with extranodal extension present within the right level II lymph node station, right level III region encompassed 4 out of 16 lymph nodes positive for squamous cell carcinoma (largest metastasis 2.9 cm with extranodal extension present), 2 out of 14 lymph nodes contained squamous cell carcinoma with extranodal extension in the right level IV dissection, and 1 out of 5 lymph nodes included metastatic carcinoma amongst the level V specimen (no extranodal extension present). Head and neck radiation therapy was delivered between the dates of April 01, 2022 through May 24, 2022. A prescribed dose of 66 Gy was delivered in 33 fractions encompassing 54 elapsed days. On review of systems, he described On physical examination, he weighed 153 lbs. The temperature was 96.8???F and his blood pressure was 127/68 mmHg. The pulse was 40 bpm and his respiratory rate was 17 breaths per minute. I did not identify any cervical lymphadenopathy. In summary, Mr. Dumont returned for a post-radiotherapy appointment. He has no significant sequelae from treatment. He will continue follow-up as scheduled with his applications system analyst. Signed by: Chato Rowland 06/21/2022 9:50:04 AM
== END 2022-06-21 23:59 | disposition home or self-care (01) ==
PROVIDERS: PCP Family Medicine; Visit Provider Radiology Radiation Oncology
DX: Z08 Encounter for follow-up examination after completed treatment for malignant neoplasm (principal); Z85.828 Personal history of other malignant neoplasm of skin; F17.210 Nicotine dependence, cigarettes, uncomplicated; Z92.3 Personal history of irradiation
CPT/HCPCS: 77014; 77336; 77386; 99024

== ENCOUNTER → 2022-07-08 08:17 | Outpatient (BNVA) | payer MEDICARE, OTHER, SELFPAY | PROVIDERS: PCP Family Medicine; Visit Provider Otolaryngology | DX: C80.1 Malignant (primary) neoplasm, unspecified (principal); C79.89 Secondary malignant neoplasm of other specified sites | CPT/HCPCS: 99212; 99213 ==

== ENCOUNTER → 2022-07-30 13:27 | Outpatient (BNVA) | payer MEDICARE, OTHER, SELFPAY | PROVIDERS: PCP Family Medicine; Visit Provider Dermatology | DX: C44.42 Squamous cell carcinoma of skin of scalp and neck (principal); L81.4 Other melanin hyperpigmentation; L57.0 Actinic keratosis; Z85.828 Personal history of other malignant neoplasm of skin | CPT/HCPCS: 11102; 17000; 17003; 99214 ==

== ENCOUNTER → 2022-08-07 13:36 | Outpatient (BNVA) | payer MEDICARE, OTHER, SELFPAY | PROVIDERS: PCP Family Medicine; Visit Provider Otolaryngology | DX: H61.23 Impacted cerumen, bilateral (principal); C79.89 Secondary malignant neoplasm of other specified sites; C80.1 Malignant (primary) neoplasm, unspecified | CPT/HCPCS: 69210; 99213; 99214 ==

== ENCOUNTER 2022-09-21 05:33 | Outpatient (CLI) | payer MEDICARE, OTHER, SELFPAY ==
--- NOTE | 2022-09-21 | PETR_ITS ---
PROCEDURE INFORMATION: Exam: PET/CT Skull Base to Mid-thigh Exam date and time: 09/21/2022 8:31 AM Age: 76 years old Clinical indication: Condition or disease; Primary cancer: Primary cancer of parotid gland LABS AND CLINICAL REPORTS: Glucose: 104 mg/dl Treatment strategy for malignancy (PET staging): Restaging (PS) TECHNIQUE: Imaging protocol: Following at least four-hour fasting and following the injection of radiopharmaceutical, low dose CT images were obtained. Then, PET images were obtained. Attenuation corrected images were constructed using the CT scan. Fused images of PET and CT were reviewed. The standardized uptake values (SUV) reported below are maximum values within a region of interest, expressed in gm/ml. Exam includes orbital meatal line to mid-thigh. Radiopharmaceutical: 9.54 mCi F-18 FDG (Fluorodeoxyglucose), IV. Time of imaging post radiopharmaceutical administration: 1 hour Injection site: left AC COMPARISON: PT PET Scan 01/12/2022 12:01 PM FINDINGS: Brain: Redemonstrated encephalomalacia in the left parietal region. Pharynx: No abnormal uptake. Larynx: No abnormal uptake. Lungs, pleura and trachea: Calcified granuloma in the left lower lobe. Heart: Normal physiologic uptake. Mediastinal space: No abnormal uptake. Liver: No abnormal uptake. Gallbladder and bile ducts: Cholelithiasis. Pancreas: No abnormal uptake. Spleen: No abnormal uptake. Adrenal glands: No abnormal uptake. Kidneys and ureters: Normal physiologic uptake. Stomach and bowel: No abnormal uptake. Reproductive: Prostatomegaly. Vasculature: No abnormal uptake. Lymph nodes: See Soft tissues finding. Bones/joints: No abnormal uptake in the visualized axial and appendicular skeleton. Soft tissues: Post treatment changes to the right neck. There appears to be some mild FDG uptake in the treatment bed and along the right sternocleidomastoid, which may be reactive (SUV max 3.4). No discrete enlarged lymphadenopathy is seen within the right neck. Some focal skin thickening with mild FDG uptake is seen over the right aspect of the occiput (SUV max 3.2). [id number] IMPRESSION: 1. Interval treatment response. There appears to be some mild FDG uptake in the treatment bed and along the right sternocleidomastoid, which may be reactive. No discrete enlarged lymphadenopathy is seen within the right neck. 2. Some focal skin thickening with mild FDG uptake is seen over the right aspect of the occiput. This should be amenable to direct inspection.
== END 2022-09-21 05:34 | disposition home or self-care (01) ==
LOC: RAD 09-23 05:34
PROVIDERS: PCP Family Medicine; Visit Provider Otolaryngology
DX: C07 Malignant neoplasm of parotid gland (principal)
CPT/HCPCS: 78815; A9552

== ENCOUNTER → 2022-10-07 10:20 | Outpatient (BNVA) | payer MEDICARE, OTHER, SELFPAY | PROVIDERS: PCP Family Medicine; Visit Provider Otolaryngology | DX: C79.89 Secondary malignant neoplasm of other specified sites (principal); C80.1 Malignant (primary) neoplasm, unspecified; R59.0 Localized enlarged lymph nodes | CPT/HCPCS: 99212; 99213 ==

== ENCOUNTER → 2022-11-06 09:30 | Outpatient (BNVA) | payer MEDICARE, OTHER, SELFPAY | PROVIDERS: PCP Family Medicine; Visit Provider Otolaryngology | DX: C79.89 Secondary malignant neoplasm of other specified sites (principal); C80.1 Malignant (primary) neoplasm, unspecified; D48.9 Neoplasm of uncertain behavior, unspecified; D48.5 Neoplasm of uncertain behavior of skin; L57.0 Actinic keratosis; L81.4 Other melanin hyperpigmentation | CPT/HCPCS: 11102; 17000; 99212; 99213; 99214 ==

== ENCOUNTER → 2022-11-18 07:51 | Outpatient (BNVA) | payer MEDICARE, OTHER, SELFPAY | PROVIDERS: PCP Family Medicine; Visit Provider Dermatology | DX: C44.329 Squamous cell carcinoma of skin of other parts of face (principal); L57.0 Actinic keratosis | CPT/HCPCS: 12051; 17000; 17311 ==

== ENCOUNTER 2022-12-06 09:13 | Outpatient (CLI) | payer MEDICARE, OTHER, SELFPAY | END 2022-12-06 09:14 | disposition home or self-care (01) | PROVIDERS: PCP Family Medicine; Visit Provider Urology | DX: C61 Malignant neoplasm of prostate (principal) | CPT/HCPCS: 36415; 84153 ==

== ENCOUNTER → 2023-01-06 08:13 | Outpatient (BNVA) | payer MEDICARE, OTHER, SELFPAY | PROVIDERS: PCP Family Medicine; Visit Provider Otolaryngology | DX: C79.89 Secondary malignant neoplasm of other specified sites (principal); C80.1 Malignant (primary) neoplasm, unspecified; R59.0 Localized enlarged lymph nodes; K13.0 Diseases of lips | CPT/HCPCS: 99212; 99213 ==

== ENCOUNTER → 2023-02-06 14:45 | Outpatient (BNVA) | payer MEDICARE, OTHER, SELFPAY | PROVIDERS: PCP Family Medicine; Visit Provider Dermatology | DX: D48.5 Neoplasm of uncertain behavior of skin (principal); Z08 Encounter for follow-up examination after completed treatment for malignant neoplasm; Z85.828 Personal history of other malignant neoplasm of skin; C79.9 Secondary malignant neoplasm of unspecified site | CPT/HCPCS: 11104; 99214 ==

== ENCOUNTER → 2023-02-17 10:51 | Outpatient (BNVA) | payer MEDICARE, OTHER, SELFPAY | PROVIDERS: PCP Family Medicine; Visit Provider Dermatology | DX: L72.0 Epidermal cyst (principal) | CPT/HCPCS: 99213 ==

== ENCOUNTER → 2023-03-07 10:31 | Outpatient (BNVA) | payer MEDICARE, OTHER, SELFPAY | PROVIDERS: PCP Family Medicine; Visit Provider Dermatology | DX: L72.0 Epidermal cyst (principal); L57.0 Actinic keratosis; C79.9 Secondary malignant neoplasm of unspecified site | CPT/HCPCS: 17000; 99213 ==

== ENCOUNTER → 2023-05-19 15:21 | Outpatient (BNVA) | payer MEDICARE, OTHER, SELFPAY | PROVIDERS: PCP Family Medicine; Visit Provider Dermatology | DX: L57.0 Actinic keratosis (principal); C79.9 Secondary malignant neoplasm of unspecified site; Z85.828 Personal history of other malignant neoplasm of skin; L72.0 Epidermal cyst; L81.4 Other melanin hyperpigmentation; L57.8 Other skin changes due to chronic exposure to nonionizing radiation; L82.1 Other seborrheic keratosis | CPT/HCPCS: 17000; 99213 ==

== ENCOUNTER → 2023-08-21 14:46 | Outpatient (BNVA) | payer MEDICARE, OTHER, SELFPAY | PROVIDERS: PCP Family Medicine; Visit Provider Dermatology | DX: C79.9 Secondary malignant neoplasm of unspecified site (principal); L57.0 Actinic keratosis; L81.4 Other melanin hyperpigmentation; L57.8 Other skin changes due to chronic exposure to nonionizing radiation; Z85.828 Personal history of other malignant neoplasm of skin | CPT/HCPCS: 17000; 99214 ==

== ENCOUNTER → 2023-10-28 14:46 | Outpatient (BNVA) | payer MEDICARE, OTHER, SELFPAY | PROVIDERS: PCP Family Medicine; Visit Provider Dermatology | DX: D48.5 Neoplasm of uncertain behavior of skin (principal); L57.0 Actinic keratosis; C79.9 Secondary malignant neoplasm of unspecified site; Z85.828 Personal history of other malignant neoplasm of skin; L84 Corns and callosities; L57.8 Other skin changes due to chronic exposure to nonionizing radiation | CPT/HCPCS: 11102; 17000; 99214 ==

== ENCOUNTER → 2023-11-13 08:41 | Outpatient (BNVA) | payer MEDICARE, OTHER, SELFPAY | PROVIDERS: PCP Family Medicine; Visit Provider Dermatology | DX: C44.622 Squamous cell carcinoma of skin of right upper limb, including shoulder (principal) | CPT/HCPCS: 11603; 13121 ==

== ENCOUNTER → 2024-01-13 14:58 | Outpatient (BNVA) | payer MEDICARE, OTHER, SELFPAY | PROVIDERS: PCP Family Medicine; Visit Provider Dermatology | DX: C79.9 Secondary malignant neoplasm of unspecified site (principal); L57.0 Actinic keratosis; L72.0 Epidermal cyst; L81.4 Other melanin hyperpigmentation; L57.8 Other skin changes due to chronic exposure to nonionizing radiation; D48.5 Neoplasm of uncertain behavior of skin; Z85.828 Personal history of other malignant neoplasm of skin | CPT/HCPCS: 17000; 99214 ==

== ENCOUNTER → 2024-05-11 08:51 | Outpatient (BNVA) | payer MEDICARE, OTHER, SELFPAY | PROVIDERS: PCP Family Medicine; Visit Provider Dermatology | DX: C79.9 Secondary malignant neoplasm of unspecified site (principal); D48.5 Neoplasm of uncertain behavior of skin; L81.4 Other melanin hyperpigmentation; L57.8 Other skin changes due to chronic exposure to nonionizing radiation; L98.8 Other specified disorders of the skin and subcutaneous tissue; L72.0 Epidermal cyst; D18.01 Hemangioma of skin and subcutaneous tissue; Z08 Encounter for follow-up examination after completed treatment for malignant neoplasm; Z85.828 Personal history of other malignant neoplasm of skin; L57.0 Actinic keratosis | CPT/HCPCS: 11102; 17000; 99214 ==

== ENCOUNTER → 2024-06-14 10:57 | Outpatient (BNVA) | payer MEDICARE, OTHER, SELFPAY | PROVIDERS: PCP Family Medicine; Visit Provider Dermatology | DX: C44.42 Squamous cell carcinoma of skin of scalp and neck (principal); C79.9 Secondary malignant neoplasm of unspecified site; Z08 Encounter for follow-up examination after completed treatment for malignant neoplasm; Z85.828 Personal history of other malignant neoplasm of skin; L57.0 Actinic keratosis | CPT/HCPCS: 17000; 99214 ==

== ENCOUNTER → 2024-06-21 08:09 | Outpatient (BNVA) | payer MEDICARE, OTHER, SELFPAY | PROVIDERS: PCP Family Medicine; Visit Provider Dermatology | DX: C44.42 Squamous cell carcinoma of skin of scalp and neck (principal) | CPT/HCPCS: 17274 ==

== ENCOUNTER → 2024-06-29 11:19 | Outpatient (BNVA) | payer MEDICARE, OTHER, SELFPAY | PROVIDERS: PCP Family Medicine; Visit Provider Dermatology | DX: Z48.817 Encounter for surgical aftercare following surgery on the skin and subcutaneous tissue (principal); C79.9 Secondary malignant neoplasm of unspecified site; L57.0 Actinic keratosis | CPT/HCPCS: 17000; 99213 ==

== ENCOUNTER → 2024-07-12 10:38 | Outpatient (BNVA) | payer MEDICARE, OTHER, SELFPAY | PROVIDERS: PCP Family Medicine; Visit Provider Dermatology | DX: C79.9 Secondary malignant neoplasm of unspecified site (principal); Z48.817 Encounter for surgical aftercare following surgery on the skin and subcutaneous tissue | CPT/HCPCS: 99213 ==

== ENCOUNTER → 2024-08-11 10:34 | Outpatient (BNVA) | payer MEDICARE, OTHER, SELFPAY | PROVIDERS: PCP Family Medicine; Visit Provider Dermatology | DX: C79.9 Secondary malignant neoplasm of unspecified site (principal); Z48.817 Encounter for surgical aftercare following surgery on the skin and subcutaneous tissue; D48.5 Neoplasm of uncertain behavior of skin; L57.0 Actinic keratosis | CPT/HCPCS: 11102; 17000; 99213 ==

== ENCOUNTER → 2024-09-14 11:05 | Outpatient (BNVA) | payer MEDICARE, OTHER, SELFPAY | PROVIDERS: PCP Family Medicine; Visit Provider Dermatology | DX: C79.9 Secondary malignant neoplasm of unspecified site (principal); Z48.817 Encounter for surgical aftercare following surgery on the skin and subcutaneous tissue; C44.622 Squamous cell carcinoma of skin of right upper limb, including shoulder; D48.5 Neoplasm of uncertain behavior of skin | CPT/HCPCS: 11102; 17272; 99213 ==

== ENCOUNTER → 2024-10-05 08:37 | Outpatient (BNVA) | payer MEDICARE, OTHER, SELFPAY | PROVIDERS: PCP Family Medicine; Visit Provider Dermatology | DX: L90.5 Scar conditions and fibrosis of skin (principal); C79.9 Secondary malignant neoplasm of unspecified site; C44.319 Basal cell carcinoma of skin of other parts of face; L57.0 Actinic keratosis | CPT/HCPCS: 13132; 17000; 17311; 99213 ==

== ENCOUNTER → 2024-12-13 10:10 | Outpatient (BNVA) | payer MEDICARE, OTHER, SELFPAY | PROVIDERS: PCP Family Medicine; Visit Provider Dermatology | DX: C79.9 Secondary malignant neoplasm of unspecified site (principal); L82.1 Other seborrheic keratosis; D18.01 Hemangioma of skin and subcutaneous tissue; Z08 Encounter for follow-up examination after completed treatment for malignant neoplasm; Z85.828 Personal history of other malignant neoplasm of skin; D48.5 Neoplasm of uncertain behavior of skin; L57.0 Actinic keratosis | CPT/HCPCS: 11102; 17000; 99213 ==

== ENCOUNTER → 2025-01-11 07:47 | Outpatient (BNVA) | payer MEDICARE, OTHER, SELFPAY | PROVIDERS: PCP Family Medicine; Visit Provider Dermatology | DX: D48.5 Neoplasm of uncertain behavior of skin (principal); C44.319 Basal cell carcinoma of skin of other parts of face; C44.629 Squamous cell carcinoma of skin of left upper limb, including shoulder | CPT/HCPCS: 11603; 12032; 15240; 17311; 99213 ==

== ENCOUNTER → 2025-01-21 11:15 | Outpatient (BNVA) | payer MEDICARE, OTHER, SELFPAY | PROVIDERS: PCP Family Medicine; Visit Provider Dermatology | DX: C44.319 Basal cell carcinoma of skin of other parts of face (principal); D48.5 Neoplasm of uncertain behavior of skin | CPT/HCPCS: 11104; 99213 ==

== ENCOUNTER → 2025-02-01 15:03 | Outpatient (BNVA) | payer MEDICARE, OTHER, SELFPAY | PROVIDERS: PCP Family Medicine; Visit Provider Dermatology | DX: C44.319 Basal cell carcinoma of skin of other parts of face (principal); L72.0 Epidermal cyst | CPT/HCPCS: 99213 ==

== ENCOUNTER → 2025-02-07 11:52 | Outpatient (BNVA) | payer MEDICARE, OTHER, SELFPAY | PROVIDERS: PCP Family Medicine; Visit Provider Dermatology | DX: C44.319 Basal cell carcinoma of skin of other parts of face (principal) | CPT/HCPCS: 99213 ==

== ENCOUNTER → 2025-03-01 12:13 | Outpatient (BNVA) | payer MEDICARE, OTHER, SELFPAY | PROVIDERS: PCP Family Medicine; Visit Provider Dermatology | DX: C44.319 Basal cell carcinoma of skin of other parts of face (principal); L72.0 Epidermal cyst | CPT/HCPCS: 99213 ==